=== PATIENT | female | born 1990 | race Hispanic/Latino ===

== ENCOUNTER 2017-03-03 13:20 | Day surgery (SDC) | payer MEDICAID ==
[~2017-03-03 13:20] MED LIST: XYLOCAINE 1% 20 mL ONE
[2017-03-03] MEDS ORDERED: XYLOCAINE 1% 20 mL ONE (13:53)
[2017-03-03 13:57] VITALS: BP 116/74
--- NOTE | 2017-03-03 15:30 | Operative Report ---
PREOPERATIVE DIAGNOSES: Sebaceous cyst with recurrent infection or inclusion cyst posterior aspect of the left ear. POSTOPERATIVE DIAGNOSES: Sebaceous cyst with recurrent infection or inclusion cyst posterior aspect of the left ear. SURGERY: Incision and removed and packing of the area. ANESTHESIA about 5 mL of 1% Xylocaine. DESCRIPTION OF PROCEDURE: The patient had a very small inclusion cyst barely about 0.6 cm. She had this before on and off with infection. At this time, there was no evidence gross infection with some pain, so under local anesthesia and after prepping and draping in the usual fashion, I made an incision over the area to the cyst that was removed in toto. There was no need for us to send any specimen. The wound was then bandaged with a small packing and paper tape. Then, she was discharged home to be seen in my office in about 2 weeks, to call me if she has any problem; otherwise, to put the bandage every other day starting 2 days from today. JOB# [id number] MARIO/JARVIS REAGAN
== END 2017-03-03 14:20 | disposition home or self-care (01) ==
LOC: OR 13:20
PROVIDERS: ATTEND Surgery
DX: L72.0 Epidermal cyst (principal); H66.92 Otitis media, unspecified, left ear; F17.210 Nicotine dependence, cigarettes, uncomplicated; E66.9 Obesity, unspecified; Z68.42 Body mass index [BMI] 45.0-49.9, adult; L72.3 Sebaceous cyst
CPT/HCPCS: 88304; 88305